=== PATIENT | male | born 1980 | race Caucasian/White ===

== ENCOUNTER 2017-06-11 19:46 | Observation (INO) | payer OTHER ==
[~2017-06-11] VITALS: Ht 188 cm; Wt 95.3 kg
[~2017-06-11 19:46] MED LIST: ANXIETY RELIEF1 PEL; NOR10T; XANAX0.25 MG
[2017-06-11 19:48] VITALS: Ht 188 cm; Wt 95.3 kg
[2017-06-11 21:17] LABS: BASOPHIL % 0.6 % (0-2); PLATELET COUNT 331 x10^3mcL (130-400); RED CELL DISTRIBUTION WIDTH 12.6 % (11.5-14.5)
[2017-06-11 21:32] LABS: CALCIUM 8.8 mg/dL (8.5-10.1); CARBON DIOXIDE 21.8 mmol/L (21-32); CHLORIDE SERUM 101 mmol/L (98-107); CREATININE SERUM 0.9 mg/dL (0.7-1.3); GFR1 > 60 mL/min; GLUCOSE SERUM 174 mg/dL (74-106); POTASSIUM SERUM 3.2 mmol/L (3.5-5.1); SODIUM SERUM 136 mmol/L (136-145)
[2017-06-11 21:46] LABS: ALBUMIN 4.2 g/dL (3.4-5.0); ALKALINE PHOSPHATASE 53 U/L (46-116); ALT/SGPT 94 U/L (16-63); AMYLASE 73 U/L (25-115); AST/SGOT 35 U/L (15-37); BILIRUBIN TOTAL 1.3 mg/dL (0.20-1.00); LIPASE 539 IU/L (73-393)
[2017-06-11] MEDS ORDERED: CITALOPRAM HYDR20 M1 PO (23:08)
[2017-06-11] MEDS ORDERED: METFORMIN850 M1 (23:08)
[2017-06-11 23:34] LABS: microscopic required? NO
[2017-06-11 23:42] LABS: urine erythrocyte NEGATIVE (NEGATIVE)
[2017-06-12 00:03] LABS: AMPHETAMINE QUAL UR NONE DETECTED (NEG <=1000)
[2017-06-12 00:14] VITALS: BP 136/90
[2017-06-12 03:35] LABS: T3 TOTAL 0.82 ng/mL
[2017-06-12 03:43] LABS: FREE T4 0.93 ng/dL (0.76-1.46); FREE THYROXINE INDEX 2.9 ug/dL (1.4-4.5); T4(THYROXINE) 8.1 ug/dL (4.7-13.3)
[2017-06-12 05:21] VITALS: BP 134/95
[2017-06-12 05:36] LABS: CHOLESTEROL 162 mg/dL (<200); CHOLESTEROL/HDL RATIO 4.5; HDL CHOLESTEROL 36 mg/dL (40-60); MAGNESIUM 2.4 mg/dL (1.8-2.4); PHOSPHOROUS 3.6 mg/dL (2.5-4.9); TRIGLYCERIDES 622 mg/dL (<150)
[2017-06-12 06:26] LABS: PLATELET COUNT 279 x10^3mcL (130-400); RED CELL DISTRIBUTION WIDTH 12.8 % (11.5-14.5)
[2017-06-12 06:30] LABS: CALCIUM 8.2 mg/dL (8.5-10.1); CARBON DIOXIDE 22.2 mmol/L (21-32); CHLORIDE SERUM 105 mmol/L (98-107); GFR1 > 60 mL/min; GLUCOSE SERUM 145 mg/dL (74-106); POTASSIUM SERUM 4.3 mmol/L (3.5-5.1); SODIUM SERUM 138 mmol/L (136-145)
[2017-06-12 09:04] VITALS: BP 132/87
[2017-06-12 12:59] VITALS: BP 139/84
[2017-06-12 16:07] VITALS: BP 137/90
[2017-06-12 21:18] VITALS: BP 136/93
== END 2017-06-12 23:25 | disposition left against medical advice (07) | DRG 438 ==
LOC: ED 19:46 → DU 22:40
PROVIDERS: Emergency Medicine; Family Medicine
DX: K85.90 Acute pancreatitis without necrosis or infection, unspecified (principal); N17.0 Acute kidney failure with tubular necrosis; F10.239 Alcohol dependence with withdrawal, unspecified; K86.1 Other chronic pancreatitis; F41.9 Anxiety disorder, unspecified; F14.129 Cocaine abuse with intoxication, unspecified; F10.229 Alcohol dependence with intoxication, unspecified; Y90.4 Blood alcohol level of 80-99 mg/100 ml; E11.65 Type 2 diabetes mellitus with hyperglycemia; E80.6 Other disorders of bilirubin metabolism; E87.6 Hypokalemia; I10 Essential (primary) hypertension; M79.602 Pain in left arm; M79.601 Pain in right arm; T14.90XS Injury, unspecified, sequela; V89.2XXS Person injured in unspecified motor-vehicle accident, traffic, sequela; F17.210 Nicotine dependence, cigarettes, uncomplicated; Z91.14 Patient's other noncompliance with medication regimen; Z79.84 Long term (current) use of oral hypoglycemic drugs
CPT/HCPCS: 82962; 83880; 84439; C9113; G0378; G0480; J1170; J1885; J2270; J3010; J3480; J7030; Q0092

== ENCOUNTER 2019-12-09 11:20 | Emergency (ER) | payer OTHER ==
[~2019-12-09] VITALS: Ht 188 cm; Wt 86.2 kg
[~2019-12-09 11:20] MED LIST changes: +CITALOPRAM HYDR20 M1 PO; +METFORMIN850 M1
[2019-12-09 11:30] VITALS: Ht 188 cm; Wt 86.2 kg
[2019-12-09 12:09] LABS: CALCIUM 9.5 mg/dL (8.5-10.1); CHLORIDE SERUM 96 mmol/L (98-107); CREATININE SERUM 0.9 mg/dL (0.7-1.3); GFR1 > 60 mL/min; GLUCOSE SERUM 396 mg/dL (74-106); POTASSIUM SERUM 4.1 mmol/L (3.5-5.1); SODIUM SERUM 131 mmol/L (136-145)
[2019-12-09 12:19] LABS: ALBUMIN 3.9 g/dL (3.4-5.0); ALKALINE PHOSPHATASE 66 U/L (46-116); ALT/SGPT 74 U/L (16-63); AST/SGOT 23 U/L (15-37); BILIRUBIN TOTAL 0.9 mg/dL (0.20-1.00)
[2019-12-09 12:22] LABS: BASOPHIL % 0.7 % (0-2); PLATELET COUNT 285 x10^3mcL (130-400); RED CELL DISTRIBUTION WIDTH 12.8 % (11.5-14.5)
[2019-12-09 14:11] VITALS: BP 127/83
== END 2019-12-09 17:25 | disposition home or self-care (01) ==
LOC: ED 11:20
PROVIDERS: Emergency Medicine
DX: R45.1 Restlessness and agitation (principal); T40.4X1A Poisoning by other synthetic narcotics, accidental (unintentional), initial encounter; F19.10 Other psychoactive substance abuse, uncomplicated; E11.9 Type 2 diabetes mellitus without complications; Y92.89 Other specified places as the place of occurrence of the external cause
CPT/HCPCS: 82962; G0480; J2060; J7030; Q0092